=== PATIENT | male | born 1965 | race African-American/Black ===

== ENCOUNTER → 2017-11-24 | Day surgery (SDC) | payer OTHER ==
[~2017-11-24] MED LIST: FENTANYL CITRATE/PF 100MCG/2 ML INJ ONE; HYOSCYAMINE SULFATE 0.5 MG/ML INJ ONE; LIDOCAINE HCL 2% LOCAL INJ 5 ML SDV VIAL INJ ONE; MIDAZOLAM HCL 2 MG/2 ML VIAL ONE; PROPOFOL IV EMULSION 10 MG/ML 50 ML VIAL ONE; TERAZOSIN HCL2 MG PO
--- OUTSIDE RECORDS SUMMARY | 2017-11-24 13:04 | XMS REPORT | Clinical Summary ---
Author Author [facility] Organization [facility] Address Unknown Phone Unavailable Care Team Providers Care National Sales Executive Name Role Phone Asked, No Pcp PCP Unavailable Allergies No Known Allergies Current Medications No known medications Active Problems Not on file Social History Tobacco Use Types Packs/Day Years Used Date Never Assessed Sex Assigned at Date Recorded Not on file Last Filed Vital Signs Not on file Plan of Treatment Health Maintenance Due Date Last Done Comments COLON CANCER SCREENING 2015 SHINGRIX VACCINE (#1) 2015 INFLUENZA VACCINE 09/06/2017 Results Not on fileafter 11/23/2016
--- NOTE | 2017-11-24 14:20 | Diagnostic Imaging Report ---
Exam: Right hip single frontal view History: Pain Comparison: None. Findings: No acute displaced fracture or dislocation. Joint space is well-maintained. Soft tissues unremarkable. Impression: No acute osseous abnormality. Signed by: Dr. Jaime Powers M.D. on 11/24/2017 2:17 PM
--- NOTE | 2017-11-24 16:09 | Operative Report ---
DATE OF PROCEDURE: November 24, 2017 REFERRING PHYSICIAN: Dr. Berenice Singh. PROCEDURE PERFORMED: Colonoscopy and polypectomy with biopsy. INDICATIONS FOR PROCEDURE: Colorectal cancer screening. MEDICATION: Patient was done under MAC. Please see anesthesiologist's note. PROCEDURE: With patient in the left lateral decubitus position, flexible fiberoptic Olympus colonoscope was inserted into the rectum with ease and advanced all the way to the cecum. There was some focal nodularity noted in the cecum and that was biopsied. The scope was then withdrawn slowly. Mucosa overlying the ascending, transverse and descending appeared to be within normal limits. One polyp was hot biopsied from the sigmoid colon and 1 polyp was hot biopsied from the rectum. The scope was then retroflexed into the distal rectum and small internal hemorrhoids were noted, none of which was actively bleeding. The scope was then straightened out. It was subsequently withdrawn. Patient tolerated the procedure well. IMPRESSION: 1. Focal nodularity cecum, biopsied. 2. Sigmoid colon polyp, hot biopsied. 3. Rectal polyp, hot biopsied. 4. Internal hemorrhoids, none actively bleeding. PLAN: Follow up histology. Initiate high-fiber, low-fat diet. Initiate high-fiber supplement. Patient will need a followup colonoscopy in 3 years. Job#: [id number] cc:RICHARD SINGH MD
== END | disposition home or self-care (01) ==
LOC: OR 13:02
PROVIDERS: ATTEND Internal Medicine Gastroenterology
DX: Z12.11 Encounter for screening for malignant neoplasm of colon (principal); K63.5 Polyp of colon; K62.1 Rectal polyp; K63.89 Other specified diseases of intestine; K64.8 Other hemorrhoids; N40.0 Benign prostatic hyperplasia without lower urinary tract symptoms; I10 Essential (primary) hypertension; R00.1 Bradycardia, unspecified; E66.8 Other obesity; Z91.013 Allergy to seafood; M54.9 Dorsalgia, unspecified; Z01.810 Encounter for preprocedural cardiovascular examination; Z68.30 Body mass index [BMI] 30.0-30.9, adult; Z87.891 Personal history of nicotine dependence
CPT/HCPCS: 45380; 45384; 93005; J1980; J2001; J2250; 45378